=== PATIENT | female | born 1935 | race Caucasian/White ===

== ENCOUNTER 2019-05-25 03:22 | Emergency (ER) | payer MEDICARE ==
[~2019-05-25] VITALS: Ht 162.6 cm; Wt 52.3 kg
[2019-05-25] MEDS ORDERED: LISINOPRIL5 MG PO (03:52)
[2019-05-25] MEDS ORDERED: METOPROL TAR25 MG PO (03:54)
[2019-05-25] MEDS ORDERED: OXYBUTYNIN5 M1 PO (03:55)
[2019-05-25] MEDS ORDERED: COUMADIN5 MG PO (03:56)
[2019-05-25] MEDS ORDERED: RISPERIDONE2 MG PO (03:56)
[2019-05-25] MEDS ORDERED: VITAMIN D31000 UNI1 PO (03:57)
[2019-05-25 06:00] LABS: HEMATOCRIT 34.2 % (37.0-47.0); HEMOGLOBIN 10.9 g/dl (12.0-16.0); IMMATURE GRANULOCYTES 0.4 % (0.0-5.0); MEAN CELL VOLUME 91.7 fL CALC (80.0-100.0); MEAN CORPUSCULAR HGB 29.2 pG CALC (26.0-32.0); MEAN CORPUSCULAR HGB CONC 31.9 g/L CALC (32.0-36.0); NEUT# 7.71 thou/uL (2.00-7.15); RED BLOOD COUNT 3.73 mill/uL (4.20-5.60); RED CELL DISTRI WIDTH 14.5 % (11.5-15.5)
[2019-05-25 06:09] LABS: URINE BILIRUBIN - DIPSTICK NEGATIVE (NEGATIVE); URINE BLOOD DIPSTICK NEGATIVE (NEGATIVE); URINE COLOR YELLOW; URINE GLUCOSE - DIPSTICK NEGATIVE (NEGATIVE); URINE KETONE NEGATIVE (NEGATIVE); URINE LEUK ESTERASE NEGATIVE (NEGATIVE); URINE NITRITE - DIPSTICK NEGATIVE (Negative); URINE PROTEIN - DIPSTICK NEGATIVE (NEG-TRACE); URINE UROBILINOGEN - DIPSTICK 0.2 E.U./dL (0.2)
[2019-05-25 06:20] LABS: ALBUMIN 3.2 g/dL (3.2-5.0); ALKALINE PHOSPHATASE 86 u/l (38-126); BILIRUBIN, TOTAL 0.3 mg/dL (0.0-1.4); BUN 26 mg/dL (8-23); BUN/CREATININE RATIO 32 (12-20 (CALC)); CARBON DIOXIDE 28 mmol/l (22-30); CHLORIDE 105 mmol/l (95-108); CREATININE 0.8 mg/dL (0.5-1.0); GFR > 60 ML/MIN (>=60 (CALC)); GFR FOR AFR.AMER. > 60 ML/MIN (>=60 (CALC)); SGOT/AST 30 u/l (9-36); SODIUM 138 mmol/l (137-146); TOTAL PROTEIN 6.3 g/dL (6.3-8.2)
[2019-05-25 06:25] LABS: ANION GAP 10 (6-22 (CALC))
[2019-05-25 06:27] LABS: INTERNATIONAL NORMALIZED RATIO 3.2 RATIO (0.7-1.3); PROTHROMBIN TIME 31.6 SECONDS (9.0-12.5)
[2019-05-25 07:24] VITALS: BP 171/90
== END 2019-05-25 07:24 | disposition short-term general hospital (02) ==
LOC: ED 03:22
PROVIDERS: Family Medicine
PROC: 0T9B70Z Drainage of Bladder with Drainage Device, Via Natural or Artificial Opening (ICD-10-PCS; principal; 2019-05-25)
DX: S72.142A Displaced intertrochanteric fracture of left femur, initial encounter for closed fracture (principal); M25.562 Pain in left knee; F03.90 Unspecified dementia, unspecified severity, without behavioral disturbance, psychotic disturbance, mood disturbance, and anxiety; W01.0XXA Fall on same level from slipping, tripping and stumbling without subsequent striking against object, initial encounter; Y92.099 Unspecified place in other non-institutional residence as the place of occurrence of the external cause